=== PATIENT | female | born 1990 | race Caucasian/White ===

== ENCOUNTER 2016-10-14 22:51 | Emergency (ER) | payer SELFPAY ==
[2016-10-14 22:53] VITALS: BP 151/73; PULSE 75; RESP 16; TEMP 97.5; O2SAT 100
[2016-12-16] MEDS ORDERED: AMOX500C PO (15:29)
== END 2016-10-15 00:44 | disposition left against medical advice (07) ==
LOC: NED 22:51
DX: R10.30 Lower abdominal pain, unspecified (principal)
CPT/HCPCS: 99281

== ENCOUNTER 2016-12-20 17:15 | Emergency (ER) | payer SELFPAY ==
[~2016-12-20 17:15] MED LIST: AMOX500C PO
[2016-12-20 17:18] VITALS: BP 121/67; PULSE 76; RESP 20; TEMP 97.8; O2SAT 100
[2016-12-20 19:56] LABS: HEMATOCRIT 35.8 % (35.0-46.0); MEAN CELL VOLUME 89.5 FL (80.0-100.0); MEAN CORPUSCULAR HEMOGLOBIN 30.9 PG (27.0-34.0); MEAN CORPUSCULAR HGB CONC 34.6 % (32.0-36.0); PLATELET COUNT 237 TH/MM3 (150-450); RED BLOOD COUNT 3.99 MIL/MM3 (4.00-5.30); RED CELL DISTRIBUTION WIDTH 12.3 % (11.6-17.2); REVIEW FLAG FINAL
[2016-12-20] MEDS ORDERED: MISOPROSTOL 200 MCG TAB PO ONE (21:15)
--- NOTE | 2016-12-20 21:16 | RADRPT ---
EXAM DATE/TIME: 12/20/2016 20:25 [facility] COMPARISON: No previous studies available for comparison. INDICATIONS : Pelvic pain and bleeding with . LAB(S): Beta-hCG: N/A MEDICAL HISTORY : . SURGICAL HISTORY : None. ENCOUNTER: Initial ACUITY: 1 day PAIN SCORE: 5/10 LOCATION: Bilateral pelvis MEASUREMENTS: UTERUS: 10.5 x 6.6 x 6.4 cm ENDOMETRIAL STRIPE: >20 mm RIGHT OVARY: 4.2 x 2.4 x 2.1 cm LEFT OVARY: 2.9 x 2.4 x 1.4 cm FREE FLUID: Yes Trace amount in bilateral adnexas. CROWN RUMP LENGTH: Non visualized. = WKS DAYS FHR: Non visualized. BPM FINDINGS: UTERUS: An intrauterine gestation is not seen. There is a 4 mm cystic area seen in the endocervix. There is e chogenic material within the endocervical canal which may represent hemorrhage. RIGHT OVARY: Ovary contains no mass or significant cystic lesion. LEFT OVARY: Ovary contains no mass or significant cystic lesion. MISCELLANEOUS: There is trace free fluid. CONCLUSION: No intrauterine gestation is seen. There is echogenic material in the endocervical canal likely repre senting hemorrhage. There is a nonspecific small 4 mm cystic area seen in this region in the endocerv ical canal. Lars Sullivan MD on December 20, 2016 at 21:11 Board Certified Radiologist. This report was verified electronically.
--- NOTE | 2016-12-27 10:24 | PD ---
HPI Chief Complaint with vaginal bleeding Date Seen: December 20, 2016 Travel History International Travel<30 Days: No Contact w/Intl Traveler<30Days: No Known Affected Area: No History of Present Illness HPI The patient was sent up from the emergency room for vaginal bleeding at 16 weeks gestation. This dating criteria was based on her reported visit to Hospital in [place] in the first trimester. No documentation of this visit was available. She was seen to [facility] earlier this week and estimated gestational age was 10-12 weeks. The patient was Wolof-speaking only and the aerial photograph interpreter computer was used for translation. Upon arrival in triage she was having vaginal bleeding and cramping. A bedside ultrasound confirmed the presence of intrauterine with no heart rate activity. The pole was low in the uterus and could not be measured with an abdominal ultrasound and therefore a radiology transvaginal ultrasound was ordered. Para: 1 : 2 History Past Medical History Medical History: Denies Significant Hx Past Surgical History Surgical History: No Previous Surgery Family History Family History: Negative Social History Alcohol Use: No Tobacco Use: No Substance Abuse: No Allergies-Medications (Allergen,Severity, Reaction): Coded Allergies: No Known Allergies (Unverified , 12/20/16) Home Meds Reported Medications Amoxicillin 500 Mg [id number] Mg PO TID Ref 0 12/16/16 Review of Systems Except as stated in HPI: all other systems reviewed are Neg Physical Exam Narrative GENERAL: Well-nourished, well-developed patient. SKIN: Warm and dry. HEAD: Normocephalic and atraumatic. EYES: No scleral icterus. No injection or drainage. ENT: No nasal drainage noted. Mucous membranes pink. Airway patent. NECK: Supple, trachea midline. No JVD. CARDIOVASCULAR: Regular rate and rhythm without murmurs, gallops, or rubs. RESPIRATORY: Breath sounds equal bilaterally. No accessory muscle use. ABDOMEN/GI: Abdomen soft, non-tender, bowel sounds present, no rebound, no guarding Gravid to [-] weeks size Fundal Height: [-] GENITOURINARY: External Genitalia: intact and normal in appearance BUS glands: [Negative-] Cervix: [-] Dilatation: [1 cm-] Effacement: [-Long] Station: [-] Presentation: [-] Membranes: [Ruptured during pelvic examination] Uterine Contractions: [-] FHT's: Absent EXTREMITIES: No cyanosis or edema. BACK: Nontender without obvious deformity. No CVA tenderness. NEUROLOGICAL: Awake and alert. Motor and sensory grossly within normal limits. Five out of 5 muscle strength in all muscle groups. Normal speech. Data Data Vital Signs Reviewed: Yes MDM Medical Record Reviewed: Yes Narrative Course / MDM Assessment: First trimester inevitable with uncertain estimated gestational age Plan: Type and screen confirmed Rh+ status There was over a 2 hour delay for the Hospital ultrasound which I observed. The previously identified pole was no longer present and the uterus which presumably had passed during the patient's multiple trips to the bathroom with clotting and bleeding. At the time the pelvic examination a small amount of material was noted to be in the cervix and this was gently retrieved with ring forceps and sent for pathologic evaluation. Following the spontaneous passage of the pole the removal of tissue from the cervix patient had minimal bleeding and requested discharge to home. She was instructed to follow up with care for women in 1 week. Diagnosis Diagnosis: Primary Impression: 10 weeks gestation of Disposition: 01 DISCHARGE HOME Condition: Stable Patient Instructions: General Instructions, Miscarriage (ED) Departure Forms: Tests/Procedures Jaxon Campos MD December 27, 2016 10:24
== END 2016-12-20 21:32 | disposition home or self-care (01) ==
LOC: HOBED 17:15
DX: O02.1 Missed abortion (principal); Z3A.10 10 weeks gestation of pregnancy
CPT/HCPCS: 76801; 76815; 76817; 85027; 86850; 86900; 86901; 88305